=== PATIENT | male | born 1970 | race Two or more races ===

== ENCOUNTER 2021-12-16 12:07 | Emergency (ER) | payer MEDICAID ==
[~2021-12-16] VITALS: Ht 165.1 cm; Wt 72.7 kg
[2021-12-16] MEDS ORDERED: LISI-894 PO (12:11)
[2021-12-16] MEDS ORDERED: AMLO-258 PO (12:11)
[2021-12-16 12:14] VITALS: BP 116/78
[2021-12-16] MEDS ORDERED: PRED-554 PO (13:17)
[2021-12-16] MEDS ORDERED: HYDR30CR3 TP (13:17)
== END 2021-12-16 13:24 | disposition home or self-care (01) ==
LOC: EMS 12:07
DX: L25.9 Unspecified contact dermatitis, unspecified cause (principal); I10 Essential (primary) hypertension; Z88.0 Allergy status to penicillin
CPT/HCPCS: 99283

== ENCOUNTER 2022-02-24 16:18 | Emergency (ER) | payer MEDICAID ==
[~2022-02-24] VITALS: Ht 167.6 cm; Wt 79.5 kg
[~2022-02-24 16:18] MED LIST: AMLO-258 PO; HYDR30CR3 TP; LISI-894 PO; PRED-554 PO
[2022-02-24 17:06] VITALS: BP 124/71
[2022-02-24] MEDS ORDERED: LISI-894 PO (17:22)
[2022-02-24] MEDS ORDERED: AMLO-258 PO (17:22)
== END 2022-02-24 17:49 | disposition home or self-care (01) ==
LOC: EMS 16:20
DX: I10 Essential (primary) hypertension (principal); Z76.0 Encounter for issue of repeat prescription; Z88.0 Allergy status to penicillin
CPT/HCPCS: 99281; Z7502